=== PATIENT | female | born 1975 | race African-American/Black ===

== ENCOUNTER 2017-11-23 13:03 | Observation (INO) | payer OTHER ==
[~2017-11-23 13:03] MED LIST: CEFAZOLIN 2 GM/50 ML (PMX) 50 ML IVPB
[2017-11-23] MEDS: SOD CHLORIDE 0.9% 1,000 ML IV ×2 (14:47→18:00)
[2017-11-23] MEDS ORDERED: ROCURONIUM 50 MG INJ (14:52)
[2017-11-23] MEDS ORDERED: NEOSTIGMINE 3 MG/3 ML SYRINGE (14:52)
[2017-11-23] MEDS ORDERED: GLYCOPYRROLATE 0.4 MG INJ (14:52)
[2017-11-23] MEDS ORDERED: PROPOFOL 20 ML (14:52)
[2017-11-23] MEDS ORDERED: CEFAZOLIN 1 GM INJ (14:52)
[2017-11-23] MEDS ORDERED: MIDAZOLAM 1 MG/ML 2 ML INJ (14:54)
[2017-11-23] MEDS ORDERED: FENTAnyl 50 MCG/ML VIAL ×3 (14:54→15:42)
[2017-11-23] MEDS ORDERED: DEXAMETHASONE 4 MG/ML 1 ML INJ (14:54)
[2017-11-23] MEDS ORDERED: ONDANSETRON 4 MG INJ (14:54)
[2017-11-23] MEDS: CEFAZOLIN 2 GM/50 ML (PMX) 50 ML IVPB (15:02)
[2017-11-23] MEDS ORDERED: EPHEDrine SULFATE 50 MG/5 ML SYG IV (15:30)
[2017-11-23] MEDS ORDERED: HYDROmorphONE 1 MG/5 ML IV SYRINGE IV (15:30)
[2017-11-23] MEDS ORDERED: OXYCODONE/ACETAMINOPHEN (5/325) TAB PO ×2 (15:30)
[2017-11-23] MEDS ORDERED: LABETALOL HCL 20MG INJ IV (15:30)
[2017-11-23] MEDS ORDERED: FENTAnyl 50 MCG/ML VIAL IV ×3 (15:30)
[2017-11-23] MEDS ORDERED: IPRATROPIUM (NEB) 0.5 MG/2.5 ML AMP HHN (15:30)
[2017-11-23] MEDS ORDERED: TRIMETHOBENZAMIDE 100 MG/ML VIAL IM (15:30)
[2017-11-23] MEDS ORDERED: MIDAZOLAM 1 MG/ML 2 ML INJ IV (15:30)
[2017-11-23] MEDS ORDERED: ALBUTEROL 0.083% (NEB) 2.5 MG/3 ML AMP HHN (15:30)
[2017-11-23] MEDS ORDERED: hydrALAzine 20 MG INJ IV (15:30)
[2017-11-23] MEDS ORDERED: DIPHENHYDRAMINE 50 MG INJ IV (15:30)
[2017-11-23] MEDS ORDERED: MEPERIDINE 25 MG INJ IV (15:30)
[2017-11-23] MEDS ORDERED: SUGAMMADEX SODIUM 200 MG/2 ML VIAL IV (15:54)
[2017-11-23] MEDS: BUPIVACAINE 0.5% (SDV) 30 ML INJ (15:57)
[2017-11-23] MEDS: HYDROCODONE/APAP (5/325) TAB PO ×2 (16:30→21:37)
[2017-11-23] MEDS ORDERED: morphine 2 MG INJ IV (16:30)
[2017-11-23] MEDS: ONDANSETRON 4 MG INJ IV (16:38)
[2017-11-23] MEDS: HYDROmorphONE 1 MG/5 ML IV SYRINGE IV ×2 (16:38→16:50)
[2017-11-23 16:44] LABS: ADD MAN DIFF? NO
[2017-11-23 16:46] LABS: BASOPHILS % 0.6 % (0.0-2.0); EOSINOPHILS # 0.1 10^3/ul (0.0-0.5); EOSINOPHILS % 2.2 % (0.0-7.0); HEMATOCRIT 36.5 % (37.0-47.0); LYMPHOCYTES # 2.4 10^3/ul (0.8-2.9); LYMPHOCYTES % 48.5 % (15.0-51.0); MEAN CORPUSCULAR HEMOGLOBIN 28.8 pg (29.0-33.0); MEAN CORPUSCULAR HGB CONC 32.9 g/dl (32.0-37.0); MEAN CORPUSCULAR VOLUME 87.5 fl (82.0-101.0); MEAN PLATELET VOLUME 11.9 fl (7.4-10.4); MONOCYTE # 0.6 10^3/ul (0.3-0.9); MONOCYTES % 11.2 % (0.0-11.0); NEUTROPHIL # 1.9 10^3/ul (1.6-7.5); NEUTROPHILS % 37.3 % (39.0-77.0); PLATELET COUNT 242 10^3/UL (140-415); RED BLOOD COUNT 4.17 10^6/ul (4.20-5.40); RED CELL DISTRIBUTION WIDTH 11.6 % (11.5-14.5)
[2017-11-23 17:08] LABS: ALANINE AMINOTRANSFERASE 25 IU/L (13-69); ALBUMIN 3.7 g/dl (3.3-4.9); ALBUMIN/GLOBULIN RATIO 1.08; ALKALINE PHOSPHATASE 48 IU/L (42-121); ANION GAP 15 (8-16); ASPARTATE AMINO TRANSFERASE 18 IU/L (15-46); BILIRUBIN,INDIRECT 0.8 mg/dl (0-1.1); BILIRUBIN,TOTAL 0.8 mg/dl (0.2-1.3); BLOOD UREA NITROGEN 8 mg/dl (7-20); CALCIUM 8.2 mg/dl (8.4-10.2); CARBON DIOXIDE 21 mmol/L (21-31); CHLORIDE 110 mmol/L (97-110); CREATININE 0.64 mg/dl (0.44-1.00); GLUCOSE 91 mg/dl (70-220); POTASSIUM 4.3 mmol/L (3.5-5.1); SODIUM 142 mmol/L (135-144); TOTAL PROTEIN 7.1 g/dl (6.1-8.1)
[2017-11-24] MEDS: CEFAZOLIN 2 GM/50 ML (PMX) 50 ML IVPB ×2 (02:34→10:40)
[2017-11-24] MEDS: SOD CHLORIDE 0.9% 1,000 ML IV ×2 (02:34→14:32)
[2017-11-24 06:15] LABS: ADD MAN DIFF? NO
[2017-11-24 06:19] LABS: BASOPHILS % 0.1 % (0.0-2.0); HEMOGLOBIN 12.8 g/dl (12.0-16.0); LYMPHOCYTES # 1.3 10^3/ul (0.8-2.9); LYMPHOCYTES % 13.4 % (15.0-51.0); MEAN CORPUSCULAR HEMOGLOBIN 28.4 pg (29.0-33.0); MEAN CORPUSCULAR HGB CONC 32.8 g/dl (32.0-37.0); MEAN CORPUSCULAR VOLUME 86.7 fl (82.0-101.0); MEAN PLATELET VOLUME 12.4 fl (7.4-10.4); MONOCYTE # 0.4 10^3/ul (0.3-0.9); MONOCYTES % 4.4 % (0.0-11.0); NEUTROPHIL # 7.8 10^3/ul (1.6-7.5); NEUTROPHILS % 81.8 % (39.0-77.0); PLATELET COUNT 286 10^3/UL (140-415); RED CELL DISTRIBUTION WIDTH 11.3 % (11.5-14.5)
[2017-11-24 06:19] LABS: WHITE BLOOD COUNT 9.5 10^3/ul (4.8-10.8)
[2017-11-24 06:58] LABS: ALANINE AMINOTRANSFERASE 22 IU/L (13-69); ALBUMIN 3.7 g/dl (3.3-4.9); ALBUMIN/GLOBULIN RATIO 1.08; ALKALINE PHOSPHATASE 47 IU/L (42-121); ANION GAP 14 (8-16); ASPARTATE AMINO TRANSFERASE 21 IU/L (15-46); BILIRUBIN,INDIRECT 0.9 mg/dl (0-1.1); BILIRUBIN,TOTAL 0.9 mg/dl (0.2-1.3); BLOOD UREA NITROGEN 10 mg/dl (7-20); CALCIUM 8.6 mg/dl (8.4-10.2); CARBON DIOXIDE 23 mmol/L (21-31); CHLORIDE 108 mmol/L (97-110); GLUCOSE 117 mg/dl (70-220); POTASSIUM 4.4 mmol/L (3.5-5.1); SODIUM 141 mmol/L (135-144); TOTAL PROTEIN 7.1 g/dl (6.1-8.1)
== END 2017-11-24 18:15 | disposition home or self-care (01) ==
LOC: SDS 13:03 → MS2 16:15
PROVIDERS: Surgery
DX: E04.9 Nontoxic goiter, unspecified (principal)
CPT/HCPCS: 60220; 80053; 85025; 88309